=== PATIENT | female | born 2005 | race Two or more races ===

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

== ENCOUNTER 2025-04-10 14:59 | Emergency (ER) | payer OTHER ==
[~2025-04-10] VITALS: Ht 160 cm; Wt 86.4 kg
[~2025-04-10 14:59] MED LIST: PENI500T2 PO
[2025-04-10 16:14] VITALS: TEMP 97.9
[2025-04-10 17:51] LABS: APPEARANCE,URINE HAZY (CLEAR); GLUCOSE, URINE (UA) NEGATIVE (NEGATIVE); LEUKOCYTE ESTERASE ,URINE LARGE (NEGATIVE); NITRATE,URINE NEGATIVE (NEGATIVE); OCCULT BLOOD,URINE MODERATE (NEGATIVE); SPECIFIC GRAVITIY, URINE 1.023 (1.003-1.030)
[2025-04-10 18:27] LABS: SQUAMOUS EPITHELIAL CELL,UR Few /LPF (None Seen)
[2025-04-10 18:36] LABS: HCG,QUAL URINE NEGATIVE (NEGATIVE)
[2025-04-10 18:51] LABS: PLATELET COUNT (AUTO) 253 K/uL (150-450); RED BLOOD CELL COUNT(AUTO) 4.56 MIL/uL (4.00-5.20); RED CELL DISTRIBUTION WIDTH 14.8 % (11.5-14.5); WHITE BLOOD COUNT (AUTO) 7.4 K/uL (4.5-11.0)
[2025-04-10] MEDS: ONDANSETRON 4 MG TABLET PO ONE (18:55)
[2025-04-10 19:07] LABS: CALCIUM, TOTAL 8.8 mg/dL (8.8-10.5); CREATININE 0.64 mg/dL (0.60-1.30); GLOMERULAR FILTR. RATE CALC > 60 mL/min (>60); GLUCOSE,RANDOM 87 mg/dL (70-110); SODIUM SERUM 139 mmol/L (136-145); UREA NITROGEN, BLOOD 14 mg/dL (7-18)
[2025-04-10] MEDS ORDERED: CEPH-558 PO (19:24)
[2025-04-10] MEDS ORDERED: ONDA-104 PO (19:24)
[2025-04-10] MEDS ORDERED: IBUP-1492 PO (19:34)
[2025-04-10] MEDS: IBUPROFEN 600 MG TABLET PO ONE (19:37)
[2025-04-10] MEDS: CEPHALEXIN MONOHYDRATE 500 MG CAPSULE PO ONE (19:37)
[2025-04-10 19:38] VITALS: BP 106/61; PULSE 70; RESP 16; O2SAT 100
== END 2025-04-10 19:59 | disposition home or self-care (01) ==
LOC: EMS 15:03
DX: S31.41XA Laceration without foreign body of vagina and vulva, initial encounter (principal); E78.00 Pure hypercholesterolemia, unspecified; Z90.49 Acquired absence of other specified parts of digestive tract; W45.8XXA Other foreign body or object entering through skin, initial encounter; Y93.89 Activity, other specified; Z79.899 Other long term (current) drug therapy; Y92.89 Other specified places as the place of occurrence of the external cause; Y99.8 Other external cause status
CPT/HCPCS: 99284; 80048; 81001; 83690; 84703; 85025; 87086; 36415; Q0162